=== PATIENT | male | born 1955 | race Hispanic/Latino ===

== ENCOUNTER → 2019-09-29 11:31 | Outpatient (CLI) | payer MEDICARE, SELFPAY ==
[2019-09-29 13:20] LABS: Hemoglobin A1C% w Est Avg Glu 4.8 % (4.0-6.0)
[2019-09-29 13:22] LABS: Albumin 4.2 g/dL (3.5-5.0); Albumin Globulin Ratio 1.5 (1.0-2.8); Alkaline Phosphatase 77 U/L (38-126); Aspartate Aminotransferase 22 IU/L (17-59); BUN Creatinine Ratio 15.2 (6-22); Bilirubin Total 0.7 mg/dL (0.2-1.3); Blood Urea Nitrogen 12 mg/dL (9-20); Calcium 9.4 mg/dL (8.4-10.2); Carbon Dioxide 31 mmol/L (22-32); Chloride 101 mmol/L (98-107); Cholesterol 142 mg/dL (140-199); Estimated Glomerular Filt Rate > 60.0 mL/min (>60); Globulin 2.8 g/dL (1.7-4.1); Glucose 99 mg/dL (80-110); HDL Cholesterol 41 mg/dL (40-60); HEMOLYSIS < 15 (0-50); LDL Cholesterol Calculated 88 mg/dL (<100); Potassium 4.7 mmol/L (3.4-5.1); Sodium 139 mmol/L (137-145); Triglycerides 63 mg/dL (35-150)
[2019-09-29 13:23] LABS: Alanine Aminotransferase < 4 IU/L (<50)
[2019-09-29 13:52] LABS: Prostate Specific Antigen Scrn 1.98 ng/mL (0.1-4.0)
== END ==
PROVIDERS: PCP Family Medicine; Referring Provider Family Medicine; Visit Provider Family Medicine
DX: Z12.5 Encounter for screening for malignant neoplasm of prostate (principal); Z76.89 Persons encountering health services in other specified circumstances
CPT/HCPCS: 36415; 80053; 80061; 83036; G0103

== ENCOUNTER → 2020-04-09 11:03 | Outpatient (CLI) | payer MEDICARE, MEDICAID, SELFPAY ==
[2020-04-10 13:19] LABS: COVID19 Sendout Not Detected (Not Detect)
== END ==
PROVIDERS: PCP Family Medicine; Visit Provider Nurse Practitioner
DX: Z01.812 Encounter for preprocedural laboratory examination (principal)
CPT/HCPCS: 87635

== ENCOUNTER 2020-09-06 11:23 | Emergency (ER) | payer MEDICARE, OTHER, MEDICAID, SELFPAY ==
[2020-09-06] VITALS (8 sets, daily range): BP systolic 101–118; BP diastolic 39–67; PULSE 40–54; RESP 18–20; TEMP 36.5; O2SAT 94–100
--- NOTE | 2020-09-06 11:57 | DI.CT.S_ITS ---
PROCEDURE: CT CERVICAL SPINE WO CON INDICATIONS: fall last night TECHNIQUE: Noncontrast 3 mm thick sections acquired from the skull base to the T4 level. Sagittal and coronal reformats were then constructed. For radiation dose reduction, the following was used: automated exposure control, adjustment of mA and/or kV according to patient size. COMPARISON: None. FINDINGS: Image quality: Excellent. Bones: No fractures or dislocations. Visualized superior ribs are intact. Midcervical degenerative disc disease is moderately severe. No traumatic subluxation is found. Soft tissues: Prevertebral soft tissues are normal in thickness. No paravertebral hematomas. No apical pneumothoraces. IMPRESSION: No fracture or traumatic subluxation seen. Midcervical degenerative disc disease is moderately severe at C5-6 and C6-7. Dictated by: Nagi Coyle M.D. on 09/06/2020 at 12:30 Approved by: Nagi Coyle M.D. on 09/06/2020 at 12:31
--- NOTE | 2020-09-06 11:57 | DI.CT.S_ITS ---
PROCEDURE: CT HEAD/BRAIN WO CON INDICATIONS: fall last night TECHNIQUE: Noncontrast 4.5 mm thick angled axial sections acquired from the foramen magnum to the vertex, with coronal and sagittal reformats. For radiation dose reduction, the following was used: automated exposure control, adjustment of mA and/or kV according to patient size. COMPARISON: None. FINDINGS: Image quality: Excellent. CSF spaces: Basal cisterns are patent. No extra-axial fluid collections. Ventricles are normal in size and shape. Brain: No midline shift. No intracranial masses or hemorrhage. Garcia-white matter interface is normal. Skull and face: Calvarium and visualized facial bones are intact, without suspicious lesions. Sinuses: Visualized sinuses and mastoids are clear. IMPRESSION: No trauma found. Dictated by: Nagi Coyle M.D. on 09/06/2020 at 12:25 Approved by: Nagi Coyle M.D. on 09/06/2020 at 12:26
--- NOTE | 2020-09-06 12:23 | ED_ITS ---
HPI - Fall General Chief Complaint: Fall Stated Complaint: hit his head in the shower Time Seen by Provider: 09/06/20 11:34 Source: patient Mode of arrival: Family Vehicle History of Present Illness HPI Narrative: Patient is a 65-year-old Male with history of Parkinson's presenting after a ground level fall last night. He decided to take a shower late at night and did not tell anyone and he slipped on soap. He had is had an actually has a laceration on the right side. No loss of consciousness nausea or vomiting. He denies any dizziness lightheadedness or shortness of breath. He states that he just took his Parkinson's medication which make him a little bit sleepy. He is noted to be bradycardic in the 40s his daughter states that usually his heart rate is in the 50s. Related Data Home Medications Medication Instructions Recorded Confirmed cholecalciferol (vitamin D3) 125 5,000 unit PO DAILY 06/16/19 08/01/20 mcg (5,000 unit) capsule multivitamin 1 cap PO DAILY 06/16/19 08/01/20 omega-3 fatty acids PO 06/16/19 08/01/20 turmeric (bulk) MISC 06/16/19 08/01/20 Previous Rx's Medication Instructions Recorded carbidopa 25 mg-levodopa 100 mg 1 tab PO BEDTIME #2 tab 06/16/19 tablet carbidopa 25 mg-levodopa 100 mg 2 tab PO .2hours #720 tab 06/16/19 tablet omeprazole 20 mg capsule,delayed See Rx Instructions .ROUTE 04/10/20 release .COMPLEX #90 cap Disabled Parking Permit #1 ea 05/30/20 mirtazapine 30 mg tablet 30 mg PO BEDTIME #30 tab 07/03/20 docusate sodium 100 mg capsule 100 mg PO BID #180 cap MDD 2 07/18/20 lorazepam 2 mg tablet 1 mg PO QID #60 tab 07/27/20 hydroxyzine HCl 25 mg tablet 25 mg PO QID PRN #120 tab 08/01/20 bed mobility handle #1 ea 09/04/20 Allergies Allergy/AdvReac Type Severity Reaction Status Date / Time No Known Drug Allergies Allergy Verified 09/06/20 11:46 Review of Systems Review of Systems ROS Unobtainable: All systems reviewed & are unremarkable except as noted in HPI and below Constitutional Constitutional: Denies chills, Denies fever(s), Denies lethargy and Denies weakness Eyes Eyes: Denies change in vision, Denies eye discharge, Denies irritation and Denies loss of vision ENT Ears, Nose, Mouth, and Throat: Denies change in voice, Denies neck pain and Denies sore throat Cardiovascular Cardiovascular: Denies dyspnea and Denies dyspnea on exertion Respiratory Respiratory: Denies cough, Denies dyspnea, Denies dyspnea on exertion and Denies wheezing Gastrointestinal Gastrointestinal: Reports as per HPI, Reports abdominal pain, Denies change in bowel habits, Denies diarrhea, Reports nausea and Reports vomiting Genitourinary Genitourinary: Denies hematuria, Denies urinary hesitancy and Denies urinary urgency Genitourinary: Denies hematuria, Denies urinary hesitancy and Denies urinary urgency Musculoskeletal Musculoskeletal: Denies neck pain Integumentary/Breasts Skin/Breast: Denies pruritus, Denies erythema, Denies rash and Denies wounds Neurologic Neurologic: Denies loss of vision and Denies weakness Allergic/Immunologic Allergic/Immunologic: Denies wheezing Patient History Medical History Gastroparesis Generalized anxiety disorder Muscle spasm Parkinson's disease (~2004) Surgical History Anesthesia History of nasal surgery (~10/2018) Family History Mother Alzheimer's disease Mental health problem Social History Smoking Status: Never smoker Smoking Status: Never smoker alcohol intake frequency: 0-2 drinks per day Substance Use Type: does not use Exam Initial Vital Signs Initial Vital Signs: Vital Signs Temperature 97.7 F 09/06/20 11:41 Pulse Rate 46 L 09/06/20 11:41 Respiratory Rate 18 09/06/20 11:41 Blood Pressure 116/55 L 09/06/20 11:41 Pulse Oximetry 100 09/06/20 11:41 GENERAL: Thin male with parkinsonian features and in [no acute] distress. HEENT: Head atraumatic, healing laceration noted on right side good skin approximation no active bleeding. No depressions or crepitation EOMI, pupils reactive, face symmetric, [moist] mucous membranes CARDIOVASCULAR: Regular rate and rhythm without murmurs, rubs or gallops. RESPIRATORY: Breath sounds equal bilaterally, no wheezes rales or rhonchi. ABDOMEN: Soft, nontender. Normoactive bowel sounds all 4 quadrants. No guarding or rebound. : No CVA tenderness EXTREMITIES: Normal range of motion, no clubbing or edema. Neurovascularly i ntact NEUROLOGICAL: Alert and oriented x4.Normal gait and speech. Cranial nerves II through XII grossly intact. Movement Disorder with consistent with Parkinson's SKIN: Laceration as described of above appears to have started healing good skin approximation Course Orders Ordered: ED Orders 09/06/20 11:41 EKG-12 Lead Stat 09/06/20 11:57 CT cervical spine wo con Stat CT head/brain wo con Stat 09/06/20 12:27 Complete Blood Count AUTO DIFF Stat Comprehensive Metabolic Panel Stat Troponin & CK Cardiac Panel Stat Vital Signs Vital signs: Vital Signs - 8 hr 09/06/20 11:41 09/06/20 12:26 09/06/20 12:30 Temperature 97.7 F Pulse Rate 46 L 54 L 43 L Respiratory Rate 18 20 Blood Pressure 116/55 L Pulse Oximetry 100 96 97 09/06/20 12:31 09/06/20 12:38 09/06/20 13:00 Temperature Pulse Rate 45 L 47 L 41 L Respiratory Rate 20 20 20 Blood Pressure 102/39 L 101/54 L Pulse Oximetry 98 99 99 09/06/20 13:02 09/06/20 13:30 Temperature Pulse Rate 40 L 44 L Respiratory Rate 20 Blood Pressure 118/67 Pulse Oximetry 100 94 MDM - Fall Lab Data Attestation: I reviewed the patient's lab results. Result diagrams: 09/06/20 12:27 09/06/20 12:27 Labs: Lab Results 09/06/20 09/06/20 Range/Units 12:27 12:27 WBC 6.6 (4.5-11.0) X10^3/uL RBC 3.81 L (4.5-5.9) X10^6/uL Hgb 12.3 L (13.5-17.5) g/dL Hct 34.8 L (41-53) % MCV 91.4 (80-100) fL MCH 32.3 (26-34) PG MCHC 35.3 (30-36) % RDW 13.0 (11.6-14.8) % Plt Count 244 (150-400) X10^3/uL Neut % (Auto) 67.6 (50-75) % Lymph % (Auto) 21.3 L (25-40) % [place] % (Auto) 8.1 (3-14) % Eos % (Auto) 2.5 (2-4) % Baso % (Auto) 0.5 (0-2) % Neut # (Auto) 4500 (5399-4267) /uL Lymph # (Auto) 1400 (3528-7748) /uL [place] # (Auto) 500 (0-900) /uL Eos # (Auto) 200 (0-450) /uL Baso # (Auto) 0 (0-100) /uL Sodium 130 L (137-145) mmol/L Potassium 4.3 (3.4-5.1) mmol/L Chloride 98 (98-107) mmol/L Carbon Dioxide 28 (22-32) mmol/L BUN 10 (9-20) mg/dL Creatinine 0.72 (0.66-1.25) mg/dL Estimated GFR > 60.0 (>60) mL/min BUN/Creatinine Ratio 13.9 (6-22) Glucose 87 (80-110) mg/dL Calcium 9.0 (8.4-10.2) mg/dL Total Bilirubin 0.7 (0.2-1.3) mg/dL AST 32 (17-59) IU/L ALT < 4 (<50) IU/L Alkaline Phosphatase 60 (38-126) U/L Total Creatine Kinase 237 H (55-170) U/L CK-MB (CK-2) 3.34 H (<2.37) ng/mL CK-MB (CK-2) Rel Index 1.4 L (1.5-5.0) % Troponin I < 0.012 (0.01-0.034) ng/mL Total Protein 6.1 L (6.3-8.2) g/dL Albumin 3.8 (3.5-5.0) g/dL Globulin 2.3 (1.7-4.1) g/dL Albumin/Globulin Ratio 1.7 (1.0-2.8) Imaging Data CT scan - head: Radiologist's Impression: PROCEDURE: CT HEAD/BRAIN WO CON INDICATIONS: fall last night TECHNIQUE: Noncontrast 4.5 mm thick angled axial sections acquired from the foramen magnum to the vertex, with coronal and sagittal reformats. For radiation dose reduction, the following was used: automated exposure control, adjustment of mA and/or kV according to patient size. COMPARISON: None. FINDINGS: Image quality: Excellent. CSF spaces: Basal cisterns are patent. No extra-axial fluid collections. Ventricles are normal in size and shape. Brain: No midline shift. No intracranial masses or hemorrhage. Garcia-white matter interface is normal. Skull and face: Calvarium and visualized facial bones are intact, without suspicious lesions. Sinuses: Visualized sinuses and mastoids are clear. IMPRESSION: No trauma found. Dictated by: Nagi Coyle M.D. on 09/06/2020 at 12:25 Approved by: Nagi Coyle M.D. on 09/06/2020 at 12:26 CT - cervical spine: Radiologist's Impression: PROCEDURE: CT CERVICAL SPINE WO CON INDICATIONS: fall last night TECHNIQUE: Noncontrast 3 mm thick sections acquired from the skull base to the T4 level. Sagittal and coronal reformats were then constructed. For radiation dose reduction, the following was used: automated exposure control, adjustment of mA and/or kV according to patient size. COMPARISON: None. FINDINGS: Image quality: Excellent. Bones: No fractures or dislocations. Visualized superior ribs are intact. Midcervical degenerative disc disease is moderately severe. No traumatic subluxation is found. Soft tissues: Prevertebral soft tissues are normal in thickness. No paravertebral hematomas. No apical pneumothoraces. IMPRESSION: No fracture or traumatic subluxation seen. Midcervical degenerative disc disease is moderately severe at C5-6 and C6-7. Dictated by: Nagi Coyle M.D. on 09/06/2020 at 12:30 ECG Data Attestation: I personally reviewed and interpreted this ECG as follows: Prior ECG tracings: not available for review Interpretation: Sinus rhythm rate 44 p.r. interval 182 QRS 74 QTC is [address] changes is no prior EKG MDM Narrative Medical decision making narrative: Patient is noted to be bradycardic at times he was 38 for brief moment but seems to be in the low 40s. Caregiver states heart rate is normally in the 50s in the corresponds to previous notes. He is not dizzy lightheaded or short of breath. At this time they all feel ready and able to go home. Discharge Plan Departure Patient Disposition: Home Clinical Impression: Closed head injury, Bradycardia Instructions: Bradycardia, Closed Head Injury Activity Restrictions/Additional Instructions: *You have been diagnosed with closed head injury, bradycardia *What to do: At this time her scans are negative. Your heart rate is found to be slightly low Na level which may cause you to be more off balance. Medication can also cause this. You may require some the call Holter monitor to monitor your heart rate *Continue to take medications as directed *Follow up with your primary care provider in 2-3 days *Return to ER if you should have increasing falls, dizziness, lightheadedness, is persistent vomiting weakness numbness or tingling or any new, worsening or concerning symptoms Prescriptions: No Action mirtazapine 30 mg tablet 30 mg PO BEDTIME Qty: 30 RF: 3 hydroxyzine HCl 25 mg tablet 25 mg PO QID PRN (Reason: agitation) Qty: 120 RF: 3 carbidopa-levodopa 25-100 mg tablet 2 tab PO .2hours Qty: 720 RF: 1 omeprazole 20 mg capsule,delayed release(DR/EC) See Rx Instructions .ROUTE .COMPLEX Qty: 90 RF: 3 (DME) Disabled Parking Permit See Rx Instructions .ROUTE .MEDSUPPLY Qty: 1 RF: 0 docusate sodium 100 mg capsule 100 mg PO BID MDD 2 Qty: 180 RF: 3 lorazepam 2 mg tablet 1 mg PO QID Qty: 60 RF: 2 (DME) bed mobility handle See Rx Instructions .ROUTE .MEDSUPPLY Qty: 1 RF: 0 cholecalciferol (vitamin D3) 5,000 unit capsule 5,000 unit PO DAILY RF: 0 multivitamin Capsule 1 cap PO DAILY RF: 0 turmeric (bulk) MISC RF: 0 omega-3 fatty acids PO RF: 0 carbidopa-levodopa 25-100 mg tablet 1 tab PO BEDTIME Qty: 2 RF: 0 Referrals: Karson Thakkar, DO [Primary Care Provider] -
[2020-09-06 12:37] LABS: Add Manual Diff / Slide Review NO; Basophils Absolute Auto 0 /uL (0-100); Hematocrit 34.8 % (41-53); Hemoglobin 12.3 g/dL (13.5-17.5); Lymphocytes Absolute Auto 1400 /uL (1100-4500); Mean Corpuscular HGB Conc 35.3 % (30-36); Neutrophils Absolute Auto 4500 /uL (1500-7000); White Blood Cell Count 6.6 X10^3/uL (4.5-11.0)
[2020-09-06 12:48] LABS: Albumin 3.8 g/dL (3.5-5.0); Albumin Globulin Ratio 1.7 (1.0-2.8); Alkaline Phosphatase 60 U/L (38-126); Aspartate Aminotransferase 32 IU/L (17-59); BUN Creatinine Ratio 13.9 (6-22); Bilirubin Total 0.7 mg/dL (0.2-1.3); Blood Urea Nitrogen 10 mg/dL (9-20); Carbon Dioxide 28 mmol/L (22-32); Chloride 98 mmol/L (98-107); Creatine Kinase 237 U/L (55-170); Estimated Glomerular Filt Rate > 60.0 mL/min (>60); Globulin 2.3 g/dL (1.7-4.1); Glucose 87 mg/dL (80-110); HEMOLYSIS 17 (0-50); Potassium 4.3 mmol/L (3.4-5.1); Sodium 130 mmol/L (137-145); Total Protein 6.1 g/dL (6.3-8.2)
[2020-09-06 12:58] LABS: Alanine Aminotransferase < 4 IU/L (<50)
[2020-09-06 13:00] LABS: Troponin I < 0.012 ng/mL (0.01-0.034)
[2020-09-06 13:04] LABS: CKMB % Relative Index 1.4 % (1.5-5.0); Creatine Kinase MB 3.34 ng/mL (<2.37)
[2020-09-06 13:10] LABS: Basophils Percent Auto 0.5 % (0-2); Eosinophils Absolute Auto 200 /uL (0-450); Eosinophils Percent Auto 2.5 % (2-4); Lymphocytes Percent Auto 21.3 % (25-40); Mean Corpuscular Hemoglobin 32.3 PG (26-34); Mean Corpuscular Volume 91.4 fL (80-100); Monocytes Absolute Auto 500 /uL (0-900); Monocytes Percent Auto 8.1 % (3-14); Neutrophils Percent Auto 67.6 % (50-75); Platelet Count 244 X10^3/uL (150-400); Red Blood Cell Count 3.81 X10^6/uL (4.5-5.9)
== END 2020-09-06 13:37 | disposition home or self-care (01) ==
PROVIDERS: Emergency Provider Emergency Medicine; PCP Family Medicine
DX: S09.90XA Unspecified injury of head, initial encounter (principal); R00.1 Bradycardia, unspecified; W18.2XXA Fall in (into) shower or empty bathtub, initial encounter
CPT/HCPCS: 36415; 70450; 72125; 80053; 82550; 82553; 84484; 85025; 93005; 99284

== ENCOUNTER → 2020-09-13 10:13 | Outpatient (CLI) | payer MEDICARE, MEDICAID, SELFPAY ==
[2020-09-13] MEDS: COVID-19 VACC #1, MRNA(MOD) 100 MCG/0.5 ML VIAL IM (10:26)
== END ==
PROVIDERS: PCP Family Medicine; Visit Provider Internal Medicine
DX: Z23 Encounter for immunization (principal)
CPT/HCPCS: 0011A; 91301

== ENCOUNTER → 2020-10-11 10:16 | Outpatient (CLI) | payer MEDICARE, OTHER, MEDICAID, SELFPAY ==
[2020-10-11] MEDS: COVID-19 VACC #2, MRNA(MOD) 100 MCG/0.5 ML VIAL IM (10:27)
== END ==
PROVIDERS: PCP Family Medicine; Visit Provider Internal Medicine
DX: Z23 Encounter for immunization (principal)
CPT/HCPCS: 0012A; 91301

== ENCOUNTER → 2020-12-25 12:59 | Outpatient (CLI) | payer MEDICARE, OTHER, MEDICAID, SELFPAY ==
[2020-12-25 15:50] LABS: COVID19 -Nasal RAPID Negative (Negative)
== END ==
PROVIDERS: PCP Family Medicine; Visit Provider Student in an Organized Health Care Education/Training Program
DX: Z01.812 Encounter for preprocedural laboratory examination (principal); Z20.822 Contact with and (suspected) exposure to COVID-19
CPT/HCPCS: 87635; C9803

== ENCOUNTER → 2021-01-12 13:18 | Outpatient (CLI) | payer MEDICARE, MEDICAID, SELFPAY ==
--- NOTE | 2021-01-12 13:19 | DI.ECHO.S_ITS ---
[facility]---------[facility] +---------+ : : [address] : : : : [id number] : : : : Phone: [phone]---------+ Echocardiogram Report + + :Name: SELWYN FRANZ Study Date: 01/12/2021 Height: 70 in : :[facility] ReadingLocation: Weight: 126 lb : : Gender: Male BSA: 1.7 m2 : :: 1955 Age: 66 yrs BP: 116/61 mmHg: :Reason For Study: Bradycardia : :Ordering Physician: Veronique : :Bruno Sandy Performed By: Priyank Finn : :Referring: VERONIQUE SANDY : + + Interpretation Summary 1) Normal left ventricular size, thickness, wall motion, and systolic function (EF 60-65%). 2) Normal right ventricular size and function. 3) No significant valvular abnormalities. 4) No prior Echo available for comparison. Procedure: A two-dimensional transthoracic echocardiogram with color flow and Doppler was performed. The study quality was technically adequate. There is no prior echocardiogram noted for this patient. The patient was in sinus bradycardia with heart rates between 44-51 bpm during the exam. Left Ventricle: The left ventricle is normal in size and wall thickness. Left ventricular systolic function is normal. The ejection fraction is estimated to be 60-65%. There are no focal wall motion abnormalities. Diastolic parameters suggest a relaxation abnormality of the left ventricle, consistent with probable normal filling pressures. Right Ventricle: The right ventricle is normal in size and function. Atria: The left atrium is moderately dilated. The right atrium is normal in size. There is no Doppler evidence for an interatrial shunt. Mitral Valve: The mitral valve is normal in structure and function. There is no mitral regurgitation noted. Aortic Valve: The aortic valve is normal in structure and function. There is no aortic valve stenosis. No aortic regurgitation is present. Tricuspid Valve: The tricuspid valve is normal in structure and function. There is a trace or physiologic amount of tricuspid regurgitation. Pulmonary artery pressures cannot be estimated because of the lack of a measurable TR jet velocity but the IVC suggests a CVP of around 3 mmHg. Pulmonic Valve: The pulmonic valve is normal in structure and function. There is mild pulmonic regurgitation. Great Vessels: The aortic root is normal size. The dimensions of the ascending aorta are normal. The IVC is of normal diameter and collapses greater than 50% with a sniff. This suggests a low right atrial pressure of 3 mm Hg. Pericardium/ Pleura There is no pericardial effusion. There is no pleural effusion. MMode/2D Measurements & Calculations LVIDd: 4.8 cm LVOT diam: 2.1 cm LVIDs: 2.9 cm Ao root diam: 3.0 cm FS: 40.1 % asc Aorta Diam: 3.1 cm IVSd: 1.0 cm LVPWd: 0.93 cm LV yousif. diameter/BSA (cm/m^2): 2.8 LV sys. diameter/BSA (cm/m^2): 1.7 LA A2 area: 21.6 cm2 RA long axis: 5.5 cm LA A4 area: 18.6 cm2 RA area: 15.1 cm2 LA length (vol): 5.2 cm RA vol: 35.3 ml LA vol: 65.0 ml RA : 20.6 ml/m2 LA vol index: 37.9 ml/m2 TAPSE: 2.5 cm Doppler Measurements & Calculations Ao V2 max: 144.5 cm/sec LVOT Max Warren: 132.7 cm/sec Ao V2 mean: 88.4 cm/sec LV V1 max P.0 mmHg Ao max P.4 mmHg LV V1 VTI: 27.8 cm Ao mean P.6 mmHg KEILA(I,D): 3.5 cm2 Ao V2 VTI: 27.8 cm KEILA(V,D): 3.2 cm2 sev ratio: 1.0 KEILA indexed to BSA (cm^2/m^2): 2.0 MV E max warren: 92.6 cm/sec PA V2 max: 125.7 cm/sec MV A max warren: 59.5 cm/sec PA V2 mean: 84.4 cm/sec MV E/A: 1.6 PA mean P.3 mmHg Med Peak E' Warren: 8.7 cm/sec PA pr(Accel): 36.2 mmHg E/E' med: 10.7 Lat Peak E' Warren: 12.5 cm/sec E/E' lat: 7.4 E/e' average: 9.0 MV dec time: 0.24 sec SV(LVOT): 95.9 ml Reading Physician:08:05 PM
== END ==
PROVIDERS: PCP Family Medicine; Referring Provider Internal Medicine Cardiovascular Disease; Visit Provider Internal Medicine Cardiovascular Disease
DX: I37.1 Nonrheumatic pulmonary valve insufficiency (principal); R00.1 Bradycardia, unspecified
CPT/HCPCS: 93306

== ENCOUNTER → 2021-01-17 11:50 | Outpatient (CLI) | payer MEDICARE, MEDICAID, SELFPAY ==
[2021-01-17 13:38] LABS: COVID-19 CEPHEID PCR (VTM/NP) Negative (Negative)
== END ==
PROVIDERS: PCP Family Medicine; Visit Provider Student in an Organized Health Care Education/Training Program
DX: Z20.822 Contact with and (suspected) exposure to COVID-19 (principal)
CPT/HCPCS: C9803; U0003

== ENCOUNTER → 2021-07-06 12:46 | Outpatient (CLI) | payer MEDICARE, OTHER, MEDICAID, SELFPAY ==
[2021-07-06 14:16] LABS: COVID19 -Nasal RAPID Negative (Negative)
== END ==
PROVIDERS: PCP Family Medicine; Visit Provider Nurse Practitioner Family
DX: Z20.822 Contact with and (suspected) exposure to COVID-19 (principal); R05.9 Cough, unspecified; R09.81 Nasal congestion
CPT/HCPCS: 87635

== ENCOUNTER → 2021-08-06 08:54 | Outpatient (CLI) | payer MEDICARE, MEDICAID, SELFPAY ==
[2021-08-06 10:05] LABS: Add Manual Diff / Slide Review NO; Basophils Absolute Auto 0 /uL (0-100); Basophils Percent Auto 0.3 % (0-2); Eosinophils Absolute Auto 300 /uL (0-450); Eosinophils Percent Auto 7.3 % (2-4); Hemoglobin 12.3 g/dL (13.5-17.5); Lymphocytes Absolute Auto 1300 /uL (1100-4500); Lymphocytes Percent Auto 29.3 % (25-40); Mean Corpuscular HGB Conc 34.3 % (30-36); Mean Corpuscular Hemoglobin 31.4 PG (26-34); Mean Corpuscular Volume 91.7 fL (80-100); Monocytes Absolute Auto 400 /uL (0-900); Monocytes Percent Auto 8.4 % (3-14); Neutrophils Absolute Auto 2500 /uL (1500-7000); Neutrophils Percent Auto 54.7 % (50-75); Platelet Count 224 X10^3/uL (150-400); Red Blood Cell Count 3.93 X10^6/uL (4.5-5.9); Red Cell Distribution Width 13.5 % (11.6-14.8); White Blood Cell Count 4.6 X10^3/uL (4.5-11.0)
[2021-08-06 10:25] LABS: Alanine Aminotransferase 5 IU/L (<50); Albumin Globulin Ratio 1.7 (1.0-2.8); Alkaline Phosphatase 43 U/L (38-126); Aspartate Aminotransferase 28 IU/L (17-59); BUN Creatinine Ratio 10.8 (6-22); Bilirubin Total 0.6 mg/dL (0.2-1.3); Blood Urea Nitrogen 7 mg/dL (9-20); Calcium 9.1 mg/dL (8.4-10.2); Carbon Dioxide 33 mmol/L (22-32); Chloride 96 mmol/L (98-107); Estimated Glomerular Filt Rate > 60.0 mL/min (>60); Globulin 2.4 g/dL (1.7-4.1); Glucose 86 mg/dL (80-110); HEMOLYSIS < 15 (0-50); Potassium 4.8 mmol/L (3.4-5.1); Sodium 132 mmol/L (137-145); Total Protein 6.4 g/dL (6.3-8.2)
[2021-08-06 10:53] LABS: Prostate Specific Antigen Scrn 1.73 ng/mL (0.1-4.0)
== END ==
PROVIDERS: PCP Family Medicine; Referring Provider Family Medicine; Visit Provider Family Medicine
DX: N40.0 Benign prostatic hyperplasia without lower urinary tract symptoms (principal); Z12.5 Encounter for screening for malignant neoplasm of prostate; K31.84 Gastroparesis
CPT/HCPCS: 36415; 80053; 85025; G0103

== ENCOUNTER 2021-11-08 18:53 | Emergency (ER) | payer MEDICARE, MEDICAID, SELFPAY ==
[2021-11-08 19:17] VITALS: BP 121/58; PULSE 53; RESP 12; TEMP 36.4; O2SAT 99; BMI 17.8
--- NOTE | 2021-11-08 19:23 | DI.RAD.S_ITS ---
PROCEDURE: XR CHEST 1V INDICATIONS: chest pain TECHNIQUE: One view of the chest was acquired. COMPARISON: None. FINDINGS: Surgical changes and devices: None. Lungs and pleura: Lungs are clear. No pleural effusions or pneumothorax. Mediastinum: Mediastinal contours appear normal. Heart size is normal. Bones and chest wall: No suspicious bony lesions. Overlying soft tissues appear unremarkable. IMPRESSION: No acute cardiopulmonary pathology. Dictated by: Sridhar Caldera M.D. on 11/08/2021 at 19:55 Approved by: Sridhar Caldera M.D. on 11/08/2021 at 19:55
--- NOTE | 2021-11-08 19:49 | DI.CT.S_ITS ---
PROCEDURE: CT CERVICAL SPINE WO CON INDICATIONS: face plant, parkinson TECHNIQUE: Noncontrast 3 mm thick sections acquired from the skull base to the T4 level. Sagittal and coronal reformats were then constructed. For radiation dose reduction, the following was used: automated exposure control, adjustment of mA and/or kV according to patient size. COMPARISON: [facility], CT, CT CERVICAL SPINE WO CON, 09/06/2020, 12:08. FINDINGS: Image quality: There is motion artifact limiting evaluation. Bones: No definite fracture or subluxation. There is straightening of the cervical lordosis redemonstrated. Minimal anterolisthesis present at C3-C4. Minimal retrolisthesis present at C6-C7. There is multilevel moderate degenerative disc disease within the mid and lower cervical spine. Multilevel moderate facet arthropathy also demonstrated within the mid cervical spine. Visualized superior ribs are intact. Soft tissues: Prevertebral soft tissues are normal in thickness. No paravertebral hematomas. No apical pneumothoraces. IMPRESSION: 1. Limited study due to motion artifact demonstrates no definite fracture or subluxation. 2. Multilevel degenerative changes throughout the cervical spine as described. Dictated by: João Waters M.D. on 11/08/2021 at 20:29 Approved by: João Waters M.D. on 11/08/2021 at 20:31
--- NOTE | 2021-11-08 19:49 | DI.CT.S_ITS ---
PROCEDURE: CT HEAD/BRAIN WO CON INDICATIONS: face plant, parkinson TECHNIQUE: Noncontrast 4.5 mm thick angled axial sections acquired from the foramen magnum to the vertex, with coronal and sagittal reformats. For radiation dose reduction, the following was used: automated exposure control, adjustment of mA and/or kV according to patient size. COMPARISON: [facility], CT, CT HEAD/BRAIN WO CON, 09/06/2020, 12:08. FINDINGS: Image quality: Excellent. CSF spaces: Basal cisterns are patent. No extra-axial fluid collections. There is mild cerebral volume loss, with resultant ventricular and sulcal prominence. There is a small focus of calcification within a right parietal sulcus redemonstrated likely representing sequelae of prior neurocysticercosis infection. Brain: No intracranial hemorrhage, mass, or mass effect. There are subcortical, periventricular and deep white matter hypodensities consistent with mild chronic small vessel ischemic changes. The love-white matter junction appears preserved. There is intracranial internal carotid artery atherosclerosis. Skull and face: Calvarium and visualized facial bones demonstrate no definite acute fractures. There is mild leftward deviation of the nasal bones which appears similar to the prior study. Sinuses: Visualized sinuses and mastoids are clear. IMPRESSION: 1. No acute intracranial abnormality. 2. Mild chronic white matter small vessel ischemic changes and cerebral volume loss. Dictated by: João Waters M.D. on 11/08/2021 at 20:27 Approved by: João Waters M.D. on 11/08/2021 at 20:29
[2021-11-08 19:51] LABS: Add Manual Diff / Slide Review NO; Basophils Absolute Auto 0 /uL (0-100); Basophils Percent Auto 0.5 % (0-2); Eosinophils Absolute Auto 100 /uL (0-450); Eosinophils Percent Auto 0.8 % (2-4); Hemoglobin 12.4 g/dL (13.5-17.5); Lymphocytes Absolute Auto 1200 /uL (1100-4500); Lymphocytes Percent Auto 18.4 % (25-40); Mean Corpuscular HGB Conc 35.4 % (30-36); Mean Corpuscular Hemoglobin 31.2 PG (26-34); Mean Corpuscular Volume 88.2 fL (80-100); Monocytes Absolute Auto 300 /uL (0-900); Monocytes Percent Auto 5.2 % (3-14); Neutrophils Absolute Auto 4800 /uL (1500-7000); Neutrophils Percent Auto 75.1 % (50-75); Platelet Count 292 X10^3/uL (150-400); Red Blood Cell Count 3.97 X10^6/uL (4.5-5.9); White Blood Cell Count 6.4 X10^3/uL (4.5-11.0)
[2021-11-08 20:03] LABS: Albumin 3.8 g/dL (3.5-5.0); Albumin Globulin Ratio 1.5 (1.0-2.8); Alkaline Phosphatase 106 U/L (38-126); Aspartate Aminotransferase 29 IU/L (17-59); BUN Creatinine Ratio 14.5 (6-22); Bilirubin Total 0.7 mg/dL (0.2-1.3); Blood Urea Nitrogen 9 mg/dL (9-20); Calcium 8.6 mg/dL (8.4-10.2); Carbon Dioxide 28 mmol/L (22-32); Chloride 98 mmol/L (98-107); Creatine Kinase 97 U/L (55-170); Estimated Glomerular Filt Rate > 60 mL/min (>60); Globulin 2.6 g/dL (1.7-4.1); Glucose 101 mg/dL (80-110); HEMOLYSIS < 15 (0-50); Lipase 71 U/L (23-300); Magnesium 1.9 mg/dL (1.6-2.3); Potassium 4.2 mmol/L (3.4-5.1); Sodium 131 mmol/L (137-145); Total Protein 6.4 g/dL (6.3-8.2)
[2021-11-08 20:04] LABS: Alanine Aminotransferase < 4 IU/L (<50)
[2021-11-08 20:15] LABS: Troponin I < 0.012 ng/mL (0.01-0.034)
--- NOTE | 2021-11-08 22:24 | ED_ITS ---
HPI - Fall General Chief Complaint: Fall Stated Complaint: fall, face plant, neck pain Time Seen by Provider: 11/08/21 22:24 Mode of arrival: Wheelchair History of Present Illness HPI Narrative: Patient is a 66-year-old male history of Parkinson's disease who presents after ground level fall. Witnessed by his daughter who states that his feet got stuck and planted in the ground and he simply fell forward hitting his face. He was not wearing his glasses there was no loss of consciousness. He is complaining of bilateral hand tingling. He says he is having hard time holding his pills which is new he feels like his fingers are full and fat. No nausea or vomiting. He is not on anticoagulation. Related Data Home Medications Medication Instructions Recorded Confirmed cholecalciferol (vitamin D3) 125 5,000 unit PO DAILY 06/16/19 10/23/21 mcg (5,000 unit) capsule multivitamin 1 cap PO DAILY 06/16/19 10/23/21 omega-3 fatty acids [Fish Oil PO 06/16/19 10/23/21 Concentrate] turmeric (bulk) [Curcumin] MISC 06/16/19 10/23/21 polyethylene glycol 3350 [Miralax] PO 10/23/21 10/23/21 Previous Rx's Medication Instructions Recorded carbidopa 25 mg-levodopa 100 mg 1 tab PO BEDTIME #2 tab 06/16/19 tablet carbidopa 25 mg-levodopa 100 mg 2 tab PO .2hours #720 tab 06/16/19 tablet Disabled Parking Permit #1 ea 05/30/20 bed mobility handle #1 ea 09/12/20 omeprazole 20 mg capsule,delayed See Rx Instructions .ROUTE 12/28/20 release .COMPLEX #90 cap benztropine 0.5 mg tablet 0.5 mg PO BID #60 tab 08/08/21 Raised Toilet Seat #1 ea 08/16/21 lorazepam 1 mg tablet 1 mg PO QID PRN #120 tab 10/10/21 mirtazapine 30 mg tablet 30 mg PO BEDTIME #30 tab 10/10/21 tamsulosin 0.4 mg capsule See Rx Instructions .ROUTE 10/24/21 .COMPLEX #90 cap Allergies Allergy/AdvReac Type Severity Reaction Status Date / Time No Known Drug Allergies Allergy Verified 11/08/21 19:23 Review of Systems Review of Systems Narrative: GENERAL: Denies chills, fatigue, malaise, fever, sweats, travel HEENT: Denies sinus pain, ear pain, sore throat, difficulty swallowing, neck pain RESPIRATORY: Denies dyspnea, cough, wheezing, hemoptysis, sputum. CARDIOVASCULAR: Denies chest pain, palpitations, orthopnea, edema GASTROINTESTINAL: Denies nausea, vomiting, abdominal pain, diarrhea, constipation, melena. : Denies dysuria, frequency, incontinence, hematuria, urinary retention, flank pain. MUSCULOSKELETAL: See HPI SKIN: No rash, no erythema, no pruritus NEUROLOGIC: Denies weakness, dizziness, headache, numbness, change in speech, confusion PSYCHIATRIC: No concerning psychosocial issues. 12 point review of systems is negative except for those stated above and HPI Patient History Medical History BPH (benign prostatic hyperplasia) Gastroparesis Generalized anxiety disorder History of depression Hx of neurological disease Incontinence Muscle spasm Parkinson's disease (~2004) Surgical History Anesthesia History of nasal surgery (~10/2018) Family History Mother Alzheimer's disease Mental health problem Father Cancer Brother Diabetes mellitus Sister Diabetes mellitus Social History marital status: number of children: 3 occupational status: disabled Smoking Status: Never smoker alcohol intake: never caffeine: No Type(s) of exercise: none Smoking Status: Never smoker alcohol intake frequency: 0-2 drinks per day Substance Use Type: does not use Exam Initial Vital Signs Initial Vital Signs: Vital Signs Temperature 97.6 F 11/08/21 19:17 Pulse Rate 53 L 11/08/21 19:17 Respiratory Rate 12 11/08/21 19:17 Blood Pressure 121/58 L 11/08/21 19:17 Pulse Oximetry 99 11/08/21 19:17 GENERAL: Alert thin 66-year-old male no acute distress HEENT: Head atraumatic,EOMI, pupils reactive, face symmetric, moist mucous membranes NECK: no vertebral tenderness no step-off CARDIOVASCULAR: Regular rate and rhythm without murmurs, rubs or gallops. RESPIRATORY: Breath sounds equal bilaterally, no wheezes rales or rhonchi. ABDOMEN: Soft, nontender. Normoactive bowel sounds all 4 quadrants. No guarding or rebound. EXTREMITIES: Normal range of motion, no clubbing or edema. Neurovascularly intact NEUROLOGICAL: Alert and oriented x3.Normal gait and speech. Cranial nerves II through XII grossly intact. Good [id number], good [id number], strength equal bilaterally, no dysarthria or aphasia, sensation in tact to soft touch bilaterally, no visual changes, no facial droop SKIN: Warm, dry, no laceration, no petechiae, no rashes or lesions. Course Orders Ordered: Discontinued Medications Ketorolac Tromethamine (Ketorolac 30 Mg/Ml Vial) 15 mg IV NOW ONE Stop: 11/08/21 22:37 Last Admin: 11/08/21 22:57 Dose: 15 mg Documented by: ELSY Vital Signs Vital signs: Vital Signs - 8 hr 11/08/21 23:22 Pulse Rate 43 L Respiratory Rate 16 Blood Pressure 121/61 Pulse Oximetry 99 MDM - Fall Lab Data Result diagrams: 11/08/21 19:41 11/08/21 19:41 Labs: Lab Results 11/08/21 11/08/21 Range/Units 19:41 19:41 WBC 6.4 (4.5-11.0) X10^3/uL RBC 3.97 L (4.5-5.9) X10^6/uL Hgb 12.4 L (13.5-17.5) g/dL Hct 35.0 L (41-53) % MCV 88.2 (80-100) fL MCH 31.2 (26-34) PG MCHC 35.4 (30-36) % RDW 13.0 (11.6-14.8) % Plt Count 292 (150-400) X10^3/uL Neut % (Auto) 75.1 H (50-75) % Lymph % (Auto) 18.4 L (25-40) % Callahan % (Auto) 5.2 (3-14) % Eos % (Auto) 0.8 L (2-4) % Baso % (Auto) 0.5 (0-2) % Neut # (Auto) 4800 (2363-7679) /uL Lymph # (Auto) 1200 (0544-8826) /uL Callahan # (Auto) 300 (0-900) /uL Eos # (Auto) 100 (0-450) /uL Baso # (Auto) 0 (0-100) /uL Sodium 131 L (137-145) mmol/L Potassium 4.2 (3.4-5.1) mmol/L Chloride 98 (98-107) mmol/L Carbon Dioxide 28 (22-32) mmol/L BUN 9 (9-20) mg/dL Creatinine 0.62 L (0.66-1.25) mg/dL Estimated GFR > 60 (>60) mL/min BUN/Creatinine Ratio 14.5 (6-22) Glucose 101 (80-110) mg/dL Calcium 8.6 (8.4-10.2) mg/dL Magnesium 1.9 (1.6-2.3) mg/dL Total Bilirubin 0.7 (0.2-1.3) mg/dL AST 29 (17-59) IU/L ALT < 4 (<50) IU/L Alkaline Phosphatase 106 (38-126) U/L Total Creatine Kinase 97 (55-170) U/L CK-MB (CK-2) TNP CK-MB (CK-2) Rel Index TNP Troponin I < 0.012 (0.01-0.034) ng/mL Total Protein 6.4 (6.3-8.2) g/dL Albumin 3.8 (3.5-5.0) g/dL Globulin 2.6 (1.7-4.1) g/dL Albumin/Globulin Ratio 1.5 (1.0-2.8) Lipase 71 (23-300) U/L Imaging Data CT scan - head: Radiologist's Impression: [address] [address] [address] Scan Report Signed Patient: Felice Schmidt MR#: [id number] : 1955 Acct:[id number] Age/Sex: 66 / M Date of Service: 11/08/21 Loc: Accession Number: [id number] ?? Procedure: CT head/brain wo con Ordering Provider: Heidi Bee D.O. PROCEDURE:? CT HEAD/BRAIN WO CON ? INDICATIONS:? face plant, parkinson ? TECHNIQUE:? Noncontrast 4.5 mm thick angled axial sections acquired from the foramen magnum to the vertex, with coronal and sagittal reformats.? For radiation dose reduction, the following was used:? automated exposure control, adjustment of mA and/or kV according to patient size.? ? COMPARISON:? [facility], CT, CT HEAD/BRAIN WO CON, 09/06/2020, 12:08. ? FINDINGS:? Image quality:? Excellent.? ? CSF spaces:? Basal cisterns are patent.? No extra-axial fluid collections.? There is mild cerebral volume loss, with resultant ventricular and sulcal prominence.? There is a small focus of calcification within a right parietal sulcus redemonstrated likely representing sequelae of prior neurocysticercosis infection.? ? Brain:? No intracranial hemorrhage, mass, or mass effect.? There are subcortical, periventricular and deep white matter hypodensities consistent with mild chronic small vessel ischemic changes.? The love-white matter junction appears preserved.? There is intracranial internal carotid artery atherosclerosis.? ? Skull and face:? Calvarium and visualized facial bones demonstrate no definite acute fractures.? There is mild leftward deviation of the nasal bones which appears similar to the prior study. ? Sinuses:? Visualized sinuses and mastoids are clear.? ? IMPRESSION:? ? 1. No acute intracranial abnormality. ? 2. Mild chronic white matter small vessel ischemic changes and cerebral volume loss. ? ? Dictated by: João Waters M.D. on 11/08/2021 at 20:27 ? ? Approved by: João Waters M.D. on 11/08/2021 at 20:29 ? CT - cervical spine: Radiologist's Impression: ?Felice Schmidt MR#: [id number] : 1955 Acct:[id number] Age/Sex: 66 / M Date of Service: 11/08/21 Loc: ED Accession Number: [id number] ?? Procedure: CT cervical spine wo con Ordering Provider: Heidi Bee D.O. PROCEDURE:? CT CERVICAL SPINE WO CON ? INDICATIONS:? face plant, parkinson ? TECHNIQUE:? Noncontrast 3 mm thick sections acquired from the skull base to the T4 level.? Sagittal and coronal reformats were then constructed.? For radiation dose reduction, the following was used:? automated exposure control, adjustment of mA and/or kV according to patient size.? ? COMPARISON:? [facility], CT, CT CERVICAL SPINE WO CON, 09/06/2020, 12:08. ? FINDINGS:? Image quality:? There is motion artifact limiting evaluation. ? Bones:? No definite fracture or subluxation.? There is straightening of the cervical lordosis redemonstrated.? Minimal anterolisthesis present at C3-C4.? Minimal retrolisthesis present at C6-C7.? There is multilevel moderate degenerative disc disease within the mid and lower cervical spine.? Multilevel moderate facet arthropathy also demonstrated within the mid cervical spine.? Visualized superior ribs are intact.? ? Soft tissues:? Prevertebral soft tissues are normal in thickness.? No paraver tebral hematomas.? No apical pneumothoraces.? ? ? IMPRESSION:? ? 1. Limited study due to motion artifact demonstrates no definite fracture or subluxation. ? 2. Multilevel degenerative changes throughout the cervical spine as described.? ? Dictated by: João Waters M.D. on 11/08/2021 at 20:29 ? ? Approved by: João Waters M.D. on 11/08/2021 at 20:3 ECG Data Interpretation: Normal sinus rhythm rate 49, no ST changes similar to previous MDM Narrative Medical decision making narrative: Patient is a 66-year-old male history of what sounds. Sounds as though he had mechanical fall feet just stopped and would not move off fell forward. He was unable to catch himself. Surprisingly no sign of facial trauma. Scans and workup in the emergency department are negative. He feels ready and able to go home. Discharge Plan Departure Patient Disposition: Home Clinical Impression: Fall Instructions: How to Prevent Falls Activity Restrictions/Additional Instructions: *You have been diagnosed with fall *What to do: At this time no evidence of injury from fall. Please use walker as needed *Continue to take medications as directed *Follow up with your primary care provider in 2-3 days or call [phone] *Return to ER if you should have increasing falls, confusion, vomiting weakness or any new, worsening or concerning symptoms Prescriptions: No Action benztropine 0.5 mg tablet 0.5 mg PO BID Qty: 60 2RF carbidopa-levodopa 25-100 mg tablet 2 tab PO .2hours Qty: 720 1RF Rx Instructions: Please take 2 tablets by mouth every 2 hours. Thank you! (DME) Disabled Parking Permit See Rx Instructions .ROUTE .MEDSUPPLY Qty: 1 0RF Rx Instructions: Valid for 5 years omeprazole 20 mg capsule,delayed release(DR/EC) See Rx Instructions .ROUTE .COMPLEX Qty: 90 3RF Dose Instruction: TAKE 1 CAPSULE BY MOUTH DAILY Rx Instructions: TAKE 1 CAPSULE BY MOUTH DAILY (DME) Raised Toilet Seat See Rx Instructions .Route .MEDSUPPLY Qty: 1 0RF Rx Instructions: Use to prevent falls during bathroom use. mirtazapine 30 mg tablet 30 mg PO BEDTIME Qty: 30 2RF lorazepam 1 mg tablet 1 mg PO QID PRN (Reason: severe agitation & anxiety) Qty: 120 2RF Label Comments: daughter in law states that he took 0.5 mg last night. tamsulosin 0.4 mg capsule See Rx Instructions .ROUTE .COMPLEX Qty: 90 0RF Dose Instruction: TAKE 1 CAPSULE BY MOUTH DAILY Rx Instructions: TAKE 1 CAPSULE BY MOUTH DAILY cholecalciferol (vitamin D3) 5,000 unit capsule 5,000 unit PO DAILY 0RF multivitamin Capsule 1 cap PO DAILY 0RF turmeric (bulk) MISC 0RF omega-3 fatty acids PO 0RF carbidopa-levodopa 25-100 mg tablet 1 tab PO BEDTIME Qty: 2 0RF (DME) bed mobility handle See Rx Instructions .Route .MEDSUPPLY Qty: 1 0RF Rx Instructions: Use to get out of bed PRN polyethylene glycol 3350 [Miralax] PO 0RF Referrals: Karson Thakkar, [Primary Care Provider] - Visit Report Forms: Patient Portal/API
[2021-11-08] MEDS: KETOROLAC 30 MG/ML VIAL 15 MG IV (22:57)
[2021-11-08 23:22] VITALS: BP 121/61; PULSE 43; RESP 16; O2SAT 99
== END 2021-11-08 23:24 | disposition home or self-care (01) ==
PROVIDERS: Emergency Provider Emergency Medicine; PCP Family Medicine
DX: S09.93XA Unspecified injury of face, initial encounter (principal); R20.2 Paresthesia of skin; G20 Parkinson's disease; W19.XXXA Unspecified fall, initial encounter
CPT/HCPCS: 36415; 70450; 71045; 72125; 80053; 82550; 83690; 83735; 84484; 85025; 93005; 96374; 99284; J1885

== ENCOUNTER 2021-11-10 10:19 | Emergency (ER) | payer MEDICARE, MEDICAID, SELFPAY ==
[2021-11-10] VITALS (7 sets, daily range): BP systolic 100–109; BP diastolic 57–62; PULSE 46–51; RESP 16–28; TEMP 36.1; O2SAT 93–98; BMI 17.8
--- NOTE | 2021-11-10 10:41 | DI.CT.S_ITS ---
PROCEDURE: CT HEAD/BRAIN WO CON INDICATIONS: fall iw head injury TECHNIQUE: Noncontrast 4.5 mm thick angled axial sections acquired from the foramen magnum to the vertex, with coronal and sagittal reformats. For radiation dose reduction, the following was used: automated exposure control, adjustment of mA and/or kV according to patient size. COMPARISON: [facility], CT, CT HEAD/BRAIN WO CON, 11/08/2021, 19:53. FINDINGS: Image quality: Motion artifact somewhat limits evaluation most prominent at the skull base. CSF spaces: Ventricles and extra-axial CSF spaces are mildly prominent consistent with cerebral atrophy. No focal extra-axial fluid collection. Brain: Mild deep and superficial white matter hypoattenuation consistent with microvascular ischemic changes unchanged from previous examination. No midline shift. No intracranial masses or hemorrhage. Garcia-white matter interface is normal. Skull and face: Calvarium and visualized facial bones are intact, without suspicious lesions. Sinuses: Visualized sinuses and mastoids are clear. IMPRESSION: Stable exam from recent CT without acute intracranial abnormality. Mild chronic white matter microvascular ischemic changes and cerebral volume loss. Dictated by: Saulo Bowen D.O. on 11/10/2021 at 10:05 Approved by: Saulo Bowen D.O. on 11/10/2021 at 10:08
--- NOTE | 2021-11-10 10:42 | ED.FALL ---
HPI - Fall General Chief Complaint: Fall Stated Complaint: Fell and hit head- slurring words Time Seen by Provider: 11/10/21 10:28 Source: patient Mode of arrival: Family Vehicle History of Present Illness HPI Narrative: 66-year-old male. History of Parkinson's disease. Is here with his daughter. Patient does understand Sinhala however speaks less than what he can understand. His daughter is at bedside providing some translation services. He was here in the emergency department a couple days ago where he sustained a mechanical fall. Had a head CT and cervical spine CT. Here unremarkable. Patient's daughter thinks that since that time his speech has been worse what it normally is. He does have a hard time speaking at baseline and does mumble quite a bit. She thinks that he has actually been slurring his words somewhat. He has also had continued left-sided neck discomfort since that fall. Today he fell while going to the toilet. He did hit his head. There was no loss of consciousness. Daughter thinks and he was slurring his words this morning. Unsure if this was prior to the fall or after the fall but she does admit that she has noticed it since his last visit here in the ER 2 days ago. Patient has some left elbow discomfort but no other musculoskeletal complaints. Denies chest pain. No shortness of breath. Related Data Home Medications Medication Instructions Recorded Confirmed cholecalciferol (vitamin D3) 125 5,000 unit PO DAILY 06/16/19 10/23/21 mcg (5,000 unit) capsule multivitamin 1 cap PO DAILY 06/16/19 10/23/21 omega-3 fatty acids [Fish Oil PO 06/16/19 10/23/21 Concentrate] turmeric (bulk) [Curcumin] MISC 06/16/19 10/23/21 polyethylene glycol 3350 [Miralax] PO 10/23/21 10/23/21 Previous Rx's Medication Instructions Recorded carbidopa 25 mg-levodopa 100 mg 1 tab PO BEDTIME #2 tab 06/16/19 tablet carbidopa 25 mg-levodopa 100 mg 2 tab PO .2hours #720 tab 06/16/19 tablet Disabled Parking Permit #1 ea 05/30/20 bed mobility handle #1 ea 09/12/20 omeprazole 20 mg capsule,delayed See Rx Instructions .ROUTE 12/28/20 release .COMPLEX #90 cap benztropine 0.5 mg tablet 0.5 mg PO BID #60 tab 08/08/21 Raised Toilet Seat #1 ea 08/16/21 lorazepam 1 mg tablet 1 mg PO QID PRN #120 tab 10/10/21 mirtazapine 30 mg tablet 30 mg PO BEDTIME #30 tab 10/10/21 tamsulosin 0.4 mg capsule See Rx Instructions .ROUTE 10/24/21 .COMPLEX #90 cap Allergies Allergy/AdvReac Type Severity Reaction Status Date / Time No Known Drug Allergies Allergy Verified 11/10/21 10:41 Review of Systems Review of Systems ROS Unobtainable: All systems reviewed & are unremarkable except as noted in HPI and below Patient History Medical History BPH (benign prostatic hyperplasia) Gastroparesis Generalized anxiety disorder History of depression Hx of neurological disease Incontinence Muscle spasm Parkinson's disease (~2004) Surgical History Anesthesia History of nasal surgery (~10/2018) Family History Mother Alzheimer's disease Mental health problem Father Cancer Brother Diabetes mellitus Sister Diabetes mellitus Social History marital status: number of children: 3 occupational status: disabled Smoking Status: Never smoker alcohol intake: never caffeine: No Type(s) of exercise: none Smoking Status: Never smoker alcohol intake frequency: 0-2 drinks per day Substance Use Type: does not use Exam Initial Vital Signs Initial Vital Signs: Vital Signs Pulse Rate 48 L 11/10/21 10:28 Respiratory Rate 16 11/10/21 10:28 Blood Pressure 109/62 11/10/21 10:28 Pulse Oximetry 97 11/10/21 10:28 Const General: cooperative, comfortable and well developed HENNY Head: laceration (Above left eye) Nose: external nose normal Face and sinus: normal facial exam Resp Effort & Inspection: normal respiratory effort Auscultation: clear to auscultation bilaterally Cardio Rate: regular rate Rhythm: regular rhythm GI Inspection: normal to inspection and non-distended Back/Spine/Pelvis Other: Left-sided paraspinal cervical pain. No midline pain. Skin Other: 3 cm laceration above left eye Neuro Other: Patient is alert oriented. He does have baseline rhythm motions of both his head and his arms and legs that are consistent with his Parkinson's. He was able to read sentences and did have quite a bit of mumbling but the words that he was saying are clear. He has no facial droop. His daughter states that his speech is at baseline. Patient is able to follow commands. Extrem Other: Full range of motion of bilateral lower extremities. Pelvis is stable. Has discomfort to left elbow does have full range of motion. The rest of his upper extremities are unremarkable. Procedures Laceration Repair Laceration 1: Site: face (Above left eye) Side (If applicable): left Size (cm): 3 Description: linear Depth: simple, single layer Local Anesthetic: lidocaine 1% and with bicarb Amount of anesthesia used (mL): 5 Pre-repair: wound explored and deep structures intact Skin layer closed with: nylon Skin layer suture size: 5-0 Number of sutures: 6 Technique: simple, interrupted Course Orders Ordered: ED Orders 11/10/21 10:41 CT head/brain wo con Stat Discontinued Medications Bacitracin (Bacitracin Oint 0.9 Gm Pckt) 1 applic TOP NOW ONE Stop: 11/10/21 10:41 Last Admin: 11/10/21 10:50 Dose: 1 applic Documented by: KENROY Ketorolac Tromethamine (Ketorolac 30 Mg/Ml Vial) 30 mg IV NOW ONE Stop: 11/10/21 12:02 Last Admin: 11/10/21 12:09 Dose: 30 mg Documented by: KENROY Lidocaine/Sodium Bicarbonate (Lido 1%/Sod Bicarb 8.4% (10ml) 10 Ml Syringe) 10 ml INJ NOW ONE Stop: 11/10/21 10:41 Last Admin: 11/10/21 10:50 Dose: 10 ml Documented by: KENROY Vital Signs Vital signs: Vital Signs - 8 hr 11/10/21 10:28 11/10/21 10:30 11/10/21 10:35 Temperature 96.9 F L Pulse Rate 48 L 48 L 48 L Respiratory Rate 16 17 18 Blood Pressure 109/62 109/62 Pulse Oximetry 97 98 98 11/10/21 11:00 11/10/21 11:30 11/10/21 12:00 Temperature Pulse Rate 51 L 47 L 46 L Respiratory Rate 19 23 Blood Pressure Pulse Oximetry 93 96 [facility] - Fall Imaging Data CT scan - head: Radiologist's Impression: [address] [address] [address] Scan Report Signed Patient: Felice Schmidt MR#: [id number] : 1955 Acct:[id number] Age/Sex: 66 / M Date of Service: 11/10/21 Loc: ED Accession Number: [id number] ?? Procedure: CT head/brain wo con Ordering Provider: Hernan Wilhelm D.O. PROCEDURE:? CT HEAD/BRAIN WO CON ? INDICATIONS:? fall iwth head injury ? TECHNIQUE:? Noncontrast 4.5 mm thick angled axial sections acquired from the foramen magnum to the vertex, with coronal and sagittal reformats.? For radiation dose reduction, the following was used:? automated exposure control, adjustment of mA and/or kV according to patient size.? ? COMPARISON:? [facility], CT, CT HEAD/BRAIN WO CON, 11/08/2021, 19:53. ? FINDINGS:? Image quality:? Motion artifact somewhat limits evaluation most prominent at the skull base. ? CSF spaces:? Ventricles and extra-axial CSF spaces are mildly prominent consistent with cerebral atrophy.? No focal extra-axial fluid collection. ? Brain:? Mild deep and superficial white matter hypoattenuation consistent with microvascular ischemic changes unchanged from previous examination.? No midline shift.? No intracranial masses or hemorrhage.? Garcia-white matter interface is normal.? ? Skull and face:? Calvarium and visualized facial bones are intact, without suspicious lesions.? ? Sinuses:? Visualized sinuses and mastoids are clear.? ? IMPRESSION:? ? Stable exam from recent CT without acute intracranial abnormality. ? Mild chronic white matter microvascular ischemic changes and cerebral volume loss. ? ? Dictated by: Saulo Bowen D.O. on 11/10/2021 at 10:05 ? ? Approved by: Saulo Bowen D.O. on 11/10/2021 at 10:08? [facility] Narrative Medical decision making narrative: Patient is not slurring his words here. His head CT is unremarkable. He has left-sided paraspinal cervical tenderness that has been there since his fall a couple days ago. He had a cervical spine CT at that time that was unremarkable. Will hold on a repeat cervical spine CT today. Does have some left elbow discomfort but has full range of motion of this. He does at his baseline neurologic status with regard to his Parkinson's disease. He is alert oriented. The laceration above his left eye was closed as described above. He was given care instructions with regard to this. His falls have been increasing recently. Low suspicion for CVA given his presentation today. Will hold on further workup in discharged home. Family was given return precautions and follow-up instructions. He expressed understanding and agreement. Discharge Plan Departure Patient Disposition: Home Clinical Impression: Parkinson's disease, Fall, Forehead laceration Instructions: How to Prevent Falls Activity Restrictions/Additional Instructions: The stitches that were placed today do need to be removed in 7-10 days. He can go to his primary doctor or the walk-in clinic for this. I do recommend he contact his primary provider for a follow-up. Return to the emergency department for any new or worsening symptoms. Prescriptions: No Action benztropine 0.5 mg tablet 0.5 mg PO BID Qty: 60 2RF carbidopa-levodopa 25-100 mg tablet 2 tab PO .2hours Qty: 720 1RF Rx Instructions: Please take 2 tablets by mouth every 2 hours. Thank you! (DME) Disabled Parking Permit See Rx Instructions .ROUTE .MEDSUPPLY Qty: 1 0RF Rx Instructions: Valid for 5 years omeprazole 20 mg capsule,delayed release(/EC) See Rx Instructions .ROUTE .COMPLEX Qty: 90 3RF Dose Instruction: TAKE 1 CAPSULE BY MOUTH DAILY Rx Instructions: TAKE 1 CAPSULE BY MOUTH DAILY (DME) Raised Toilet Seat See Rx Instructions .Route .MEDSUPPLY Qty: 1 0RF Rx Instructions: Use to prevent falls during bathroom use. mirtazapine 30 mg tablet 30 mg PO BEDTIME Qty: 30 2RF lorazepam 1 mg tablet 1 mg PO QID PRN (Reason: severe agitation & anxiety) Qty: 120 2RF Label Comments: daughter in law states that he took 0.5 mg last night. tamsulosin 0.4 mg capsule See Rx Instructions .ROUTE .COMPLEX Qty: 90 0RF Dose Instruction: TAKE 1 CAPSULE BY MOUTH DAILY Rx Instructions: TAKE 1 CAPSULE BY MOUTH DAILY cholecalciferol (vitamin D3) 5,000 unit capsule 5,000 unit PO DAILY 0RF multivitamin Capsule 1 cap PO DAILY 0RF turmeric (bulk) MISC 0RF omega-3 fatty acids PO 0RF carbidopa-levodopa 25-100 mg tablet 1 tab PO BEDTIME Qty: 2 0RF (DME) bed mobility handle See Rx Instructions .Route .MEDSUPPLY Qty: 1 0RF Rx Instructions: Use to get out of bed PRN polyethylene glycol 3350 [Miralax] PO 0RF Referrals: Karson Thakkar, [Primary Care Provider] -
[2021-11-10] MEDS: BACITRACIN OINT 0.9 GM PCKT 1 APPLIC TOP (10:50)
[2021-11-10] MEDS: LIDO 1%/SOD BICARB 8.4% (10ML) 10 ML SYRINGE INJ (10:50)
[2021-11-10] MEDS: KETOROLAC 30 MG/ML VIAL IV (12:09)
== END 2021-11-10 12:24 | disposition home or self-care (01) ==
PROVIDERS: Emergency Provider Emergency Medicine; PCP Family Medicine
DX: S01.81XA Laceration without foreign body of other part of head, initial encounter (principal); R47.81 Slurred speech; W19.XXXA Unspecified fall, initial encounter; G20 Parkinson's disease
CPT/HCPCS: 12013; 36415; 70450; 96374; 99284; J1885